=== PATIENT | male | born 1985 | race Caucasian/White ===

== ENCOUNTER 2024-12-29 10:09 | Inpatient (IN) | payer OTHER ==
[~2024-12-29] VITALS: Ht 182.9 cm; Wt 106.0 kg
--- NOTE | 2024-12-29 10:21 | ED.PDOC ---
GI ASSESSMENT HPI Comments 39-year-old male with PMHx Pancreatitis brought in by EMS presents with a chief complaint of abdominal pain x 2 days with associated nausea. Patient states that his pain is localized to his epigastric region, nonradiating, describes as sharp, and rates his pain 9/10. Patient mentions that the last time his pancreatitis flared up was August 2023. Patient denies any alcohol use recently. No other symptoms or modifying factors present at this time. Chief Complaint: Abdominal Pain Time Seen by MD: 10:05 Reviewed Notes: Medications, Allergies Allergies: Coded Allergies: NO KNOWN ALLERGIES (Unverified , 12/29/24) Information Source: Patient Timing: Days Duration: Since onset Prehospital treatment: None Quality: Sharp Vomitus: None Stool: Normal Severity: Moderate Recent: None Recent Hx of: None Pain Location: Epigastric Associated sign and symptoms: Nausea, Abdominal Pain Past Medical History PAST MEDICAL HISTORY: HTN Past Medical History (Other): Pancreatitis Surgical History: Denies all surgeries Family History Family History: Reviewed,noncontributory to illness Social History Smoker: Non-Smoker Alcohol: Denies ETOH Use Drugs: Denies Drug Use Lives In: Home Constitutional: denies: chills, diaphoresis, fatigue, fever, malaise, sweats, weakness, others EENTM: denies: blurred vision, double vision, ear bleeding, ear discharge, ear drainage, ear pain, ear ringing, eye pain, eye redness, hearing loss, mouth pain, mouth swelling, nasal discharge, nose bleeding, nose congestion, nose pain, photophobia, tearing, throat pain, throat swelling, voice changes, others Respiratory: denies: cough, hemoptysis, orthopnea, SOB at rest, shortness of breath, SOB with excertion, stridor, wheezing, others Cardiovascular: denies: chest pain, dizzy spells, diaphoresis, Dyspnea on exertion, edema, irregular heart beat, left arm pain, lightheadedness, palpitations, PND, syncope, others Gastrointestinal: reports: abdominal pain, nausea; denies: abdomen distended, blood streaked bowels, constipated, diarrhea, dysphagia, difficulty swallowing, hematemesis, melena, poor appetite, poor fluid intake, rectal bleeding, rectal pain, vomiting, others Genitourinary: denies: burning, dysuria, flank pain, frequency, hematuria, incontinence, penile discharge, penile sore, pain, testicle pain, testicle swelling, urgency, others Neurological: denies: dizziness, fainting, headache, left sided numbness, left sided weakness, numbness, paresthesia, pre-existing deficit, right sided numbness, right sided weakness, seizure, speech problems, tingling, tremors, weakness, others Musculoskeletal: denies: back pain, gout, joint pain, joint swelling, muscle pain, muscle stiffness, neck pain, others Integumetry: denies: bruises, change in color, change in hair/nails, dryness, laceration, lesions, lumps, rash, wounds, others Allergic/Immunocompromised: denies: Difficulty Healing, Frequent Infections, Hives, Itching, others Hematologic/Lymphatic: denies: anemia, blood clots, easy bleeding, easy bruising, swollen glands, others Endocrine: denies: excessive hunger, excessive sweating, excessive thirst, excessive urination, flushing, intolerance to cold, intolerance to heat, unexplained weight gain, unexplained weight loss, others Psychiatric: denies: anxiety, bipolar disorder, depression, hopeless, panic disorder, schizophrenia, sleepless, suicidal, others All Other Systems: Reviewed and Negative Physical Exam General Appearance: Moderate Distress, Normal HEENT: Normal ENT Inspection, Pharynx Normal, TMs Normal Neck: Full Range of Motion, Non-Tender, Normal, Normal Inspection Respiratory: Chest Non-Tender, Lungs Clear, No Accessory Muscle Use, No Respiratory Distress, Normal Breath Sounds Cardiovascular: No Edema, No JVD, No Murmur, No Gallop, Normal Peripheral Pulses, Regular Rate/Rhythm Breast Exam: Deferred Gastrointestinal: Distended, No Organomegaly, No Pulsatile Mass, Normal Bowel Sounds, Soft Genitalia: Deferred Pelvic: Deferred Rectal: Deferred Extremities: No calf tenderness, Normal capillary refill, Normal inspection, Normal range of motion, Non-tender, No pedal edema Musculoskeletal : Apperance: Normal Neurologic: Alert, 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 Was a procedure done?: No GI differential Dx Differential Diagnosis: Constipation, Diverticular disease, Esophagitis, Gastritis/PUD, Gastroenteritis X-Ray, Labs, Meds, VS Vital Signs Date Time Temp Pulse Resp B/P (MAP) Pulse Ox O2 Delivery O2 Flow Rate FiO2 12/29/24 11:17 80 18 130/70 12/29/24 10:56 79 18 128/81 12/29/24 10:50 97 18 97 Room Air* 0 21 12/29/24 10:47 97.9 92 16 128/81 (97) 100 97.9 12/29/24 10:47 92 16 100 Room Air 12/29/24 10:12 98.7 92 18 136/88 (104) 98 Lab Test 12/29/24 10:50 Range/Units White Blood Count 6.5 4.4-10.8 10^3/uL Red Blood Count 5.44 4.5-5.90 10^6/uL Hemoglobin 15.0 13.5-17.5 g/dL Hematocrit 44.7 41.0-53.0 % Mean Corpuscular Volume 82.2 80.0-100.0 fL Mean Corpuscular Hemoglobin 27.5 L 28.0-32.0 pg Mean Corpuscular Hemoglobin Concent 33.5 32.0-36.0 g/dL Red Cell Distribution Width 14.4 H 11.8-14.3 % Platelet Count 242 140-450 10^3/uL Mean Platelet Volume 8.1 6.9-10.8 fL Neutrophils (%) (Auto) 64.2 37.0-80.0 % Lymphocytes (%) (Auto) 25.9 10.0-50.0 % Monocytes (%) (Auto) 7.8 0.0-12.0 % Eosinophils (%) (Auto) 1.3 0.0-7.0 % Basophils (%) (Auto) 0.8 0.0-2.0 % Neutrophils # (Auto) 4.2 1.6-8.6 10 ^3/uL Lymphocytes # (Auto) 1.7 0.4-5.4 10 ^3/uL Monocytes # (Auto) 0.5 0-1.3 10 ^3/uL Eosinophils # (Auto) 0.1 0-0.8 10 ^3/uL Basophils # (Auto) 0.1 0-0.2 10 ^3/uL Nucleated Red Blood Cells 0.1 % Sodium Level 134 L 136-145 mmol/L Potassium Level 3.8 3.5-5.1 mmol/L Chloride Level 102 98-107 mmol/L Carbon Dioxide Level 24 20-31 mmol/L Anion Gap 8 5-15 Blood Urea Nitrogen 15 9-23 mg/dL Creatinine 0.92 0.700-1.30 mg/dL Glomerular Filtration Rate Calc 108 >90 mL/min BUN/Creatinine Ratio 16.3 10.0-20.0 Serum Glucose 129 H 74-106 mg/dL Calcium Level 9.3 8.7-10.4 mg/dL Total Bilirubin 0.6 0.2-1.0 mg/dL Lipase 23 12-53 U/L Current Medications Medications (Trade) Dose Ordered Sig/Coreen Route Start Time Stop Time Status Last Admin Ondansetron HCl (Zofran) 4 mg ONCE ONCE IV 12/29/24 10:15 12/29/24 10:40 DC 12/29/24 10:57 Sodium Chloride 1,000 ml @ 1,000 mls/hr Q1H ONCE IVB 12/29/24 10:15 12/29/24 11:14 DC 12/29/24 10:55 Morphine Sulfate 4 mg ONCE ONCE IV 12/29/24 10:15 12/29/24 10:40 DC 12/29/24 10:56 Patient alert. Complaining of abdominal pain. Vitals stable. Answering questions. Abdomen is distended. History of pancreatitis. Establish intravenous access. Was given fluids. Was given morphine. Was given Zofran. Last time he had pancreatitis was last year. Lipase within normal limits pain Continues to have abdominal pain. Was given Dilaudid. Explained to the patient. Continue monitoring. Time of 1ST Reevaluation: 10:35 Reevaluation 1ST: Unchanged Patient Education/Counseling: Diagnosis, Treatment, Prognosis Family Education/Counseling: Diagnosis, Treatment, Prognosis Departure 1 Departure Time of Disposition: 10:51 Impression: Primary Impression: Acute abdominal pain Disposition: ADMITTED INPATIENT Admit to: Med Surg Condition: Guarded Critical Care Note Critical Care Time?: No Stability Stability form required: No Heart Score Heart Score: Heart Score Response (Comments) Value History N/A 0 EKG N/A 0 Age N/A 0 Risk Factors N/A 0 Troponin N/A 0 Total 0 I personally scribed for THEODORE PIKE MD ([email or web address]) on 12/29/24 at 10:21. Electronically submitted by Eliud Hood ([email or web address]). THEODORE PIKE MD Dec 29, 2024 10:21
[2024-12-29 10:50] VITALS: PULSE 97; RESP 18; O2SAT 97
[2024-12-29] MEDS: SODIUM CHLORIDE 0.9% 1,000 ML IVB ONE (10:55)
[2024-12-29] MEDS: MORPHINE SULFATE 4 MG/ML SYR/VIAL IV ONE (10:56)
[2024-12-29] MEDS: ONDANSETRON HCL 4 MG/2 ML VIAL IV ONE (10:57)
[2024-12-29 11:17] LABS: Basophils # (auto) 0.1 10 ^3/uL (0-0.2); Basophils % (auto) 0.8 % (0.0-2.0); Eosinophils # (auto) 0.1 10 ^3/uL (0-0.8); Eosinophils % (auto) 1.3 % (0.0-7.0); Hematocrit 44.7 % (41.0-53.0); Lymphocytes # (auto) 1.7 10 ^3/uL (0.4-5.4); Lymphocytes % (auto) 25.9 % (10.0-50.0); Mean Corpuscular Hemoglobin 27.5 pg (28.0-32.0); Mean Corpuscular Hgb Conc. 33.5 g/dL (32.0-36.0); Mean Corpuscular Volume 82.2 fL (80.0-100.0); Monocytes # (auto) 0.5 10 ^3/uL (0-1.3); Monocytes % (auto) 7.8 % (0.0-12.0); Neutrophils # (auto) 4.2 10 ^3/uL (1.6-8.6); Neutrophils % (auto) 64.2 % (37.0-80.0); Nucleated Red Blood Cells % 0.1 %; Platelet Count (auto) 242 10^3/uL (140-450); Red Blood Cells 5.44 10^6/uL (4.5-5.90); Red Cell Distribution Width 14.4 % (11.8-14.3); White Blood Cell 6.5 10^3/uL (4.4-10.8)
[2024-12-29 11:23] LABS: Anion Gap 8 (5-15); Calcium 9.3 mg/dL (8.7-10.4); Carbon Dioxide 24 mmol/L (20-31); Chloride 102 mmol/L (98-107); Potassium 3.8 mmol/L (3.5-5.1)
[2024-12-29 11:29] LABS: BUN/Creatinine Ratio 16.3 (10.0-20.0); Blood Urea Nitrogen 15 mg/dL (9-23)
[2024-12-29 11:31] LABS: Bilirubin, Total 0.6 mg/dL (0.2-1.0)
[2024-12-29 11:33] LABS: Glucose 129 mg/dL (74-106); Sodium 134 mmol/L (136-145)
[2024-12-29 12:11] LABS: Lipase 23 U/L (12-53)
[2024-12-29] MEDS: HYDROmorphone HCL 2 MG/ML VL/or syr IV ONE (13:08)
[2024-12-29] MEDS ORDERED: HYDROcodone-ACET 5/325MG TAB PO PRN (15:30)
[2024-12-29] MEDS ORDERED: ACETAMINOPHEN 325 MG TAB PO PRN (15:45)
[2024-12-29] MEDS ORDERED: DEXTROSE (50%) 50ML SYRG IV PRN (15:45)
[2024-12-29] MEDS ORDERED: ONDANSETRON HCL 4 MG/2 ML VIAL IV PRN (15:45)
[2024-12-29] MEDS ORDERED: hydrALAZINE HCL 20 MG/ML VL IV PRN (15:45)
--- NOTE | 2024-12-29 16:19 | DVHHP2 ---
History of Present Illness Reason for Visit: ABD pain intractable History of Present Illness 39-year-old male with PMHx Pancreatitis brought in by EMS presents with a chief complaint of abdominal pain x 2 days with associated nausea. Patient states that his pain is localized to his epigastric region, nonradiating, describes as sharp, and rates his pain 9/10. Patient mentions that the last time his pancreatitis flared up was August 2023, and it felt the same way. Patient denies any alcohol use recently. No other symptoms or modifying factors present at this time. Abdominal distention noted. Lipase is within normal limits. Pancreas ultrasound pending Past Medical History Hypertension and anxiety, insomnia Past Surgical History Denies Family History Denies Smoke: No ALCOHOL: none Drugs: None Lives: Alone Review of Systems Constitutional: No: Fever, Chills, Sweats, Weakness, Malaise, Other Eyes: No: Pain, Vision change, Conjunctivae inflammation, Eyelid inflammation, Other, Redness ENT: No: Ear pain, Ear discharge, Nose pain, Nose discharge, Nose congestion, Mouth pain, Mouth swelling, Throat pain, Throat swelling, Other Respiratory: No: Cough, Dry, Shortness of breath, SOB with excertion, Wheezing, Hemoptysis, Pleuritic Pain, Sputum, Wheezing, Other Cardiovascular: No: Chest Pain, Palpitations, Orthopnea, Paroxysmal Noc. Dyspnea, Edema, Lt Headedness, Other Gastrointestinal: Nausea, Abdominal Pain; No: Vomiting, Diarrhea, Constipation, Melena, Hematochezia, Other Genitourinary: No Dysuria, No Frequency, No Incontinence, No Hematuria, No Retention, No Other Musculoskeletal: No: other, neck pain, shoulder pain, arm pain, back pain, hand pain, leg pain, foot pain Skin: No: Rash, Lesions, Jaundice, Bruising, Other Neurological: No: Weakness, Numbness, Incoordination, Change in speech, Confusion, Seizures, Other Allergies: Coded Allergies: NO KNOWN ALLERGIES (Unverified , 12/29/24) Medications Current Medications Medications Dose Ordered Sig/Coreen Route Start Time Stop Time Status Last Admin Dose Admin Bupropion HCl 150 mg BID@07,19 PO 12/29/24 15:30 UNV Atorvastatin Calcium 20 mg HS PO 12/29/24 22:00 UNV Quetiapine Fumarate 300 mg HS PO 12/29/24 22:00 UNV Propranolol HCl 10 mg BID PO 12/29/24 15:30 UNV Hydromorphone HCl 0.25 mg Q4HPRN PRN IV 12/29/24 15:30 UNV Acetaminophen/ Hydrocodone Bitart 1 tab Q4HPRN PRN PO 12/29/24 15:30 UNV Ondansetron HCl 4 mg Q4HPRN PRN IV 12/29/24 15:45 UNV Acetaminophen 325 mg Q6HP PRN PO 12/29/24 15:45 UNV Hydralazine HCl 10 mg Q6HP PRN IV 12/29/24 15:45 UNV Diagnostic Test (Pha) 1 strip ACHS 12/29/24 17:00 UNV Insulin Human Regular HS SC 12/29/24 22:00 UNV Insulin Human Regular AC SC 12/29/24 17:00 UNV Dextrose 50 ml UD PRN IV 12/29/24 15:45 UNV Exam Vital Signs Vital Signs Date Time Temp Pulse Resp B/P (MAP) Pulse Ox O2 Delivery O2 Flow Rate FiO2 12/29/24 13:37 80 18 145/90 12/29/24 10:50 97 Room Air* 0 21 12/29/24 10:47 97.9 97.9 General Appearance: Alert, Oriented X3, Cooperative, No acute distress HEENT: Atraumatic, PERRLA, EOMI, Mucous membr. moist/pink Respiratory: Clear to auscultation, Normal air movement Cardiovascular: Regular rate, Normal S1, Normal S2, No murmurs Abdominal: Normal bowel sounds, No tenderness, No hepatospenomegaly, No masses Extremities: No clubbing, No cyanosis, No edema, Normal pulses, No tenderness/swelling Skin: No rashes, No breakdown, No significant lesion Neuro: Normal gait, Normal speech, Strength at 5/5 X4 ext, Normal tone, Sensation intact, Cranial nerves 3-12 NL Psych/Mental Status: Mental status NL, Mood NL Labs/Xrays Imaging and lab work reviewed Labs Test 12/29/24 10:50 Range/Units White Blood Count 6.5 4.4-10.8 10^3/uL Red Blood Count 5.44 4.5-5.90 10^6/uL Hemoglobin 15.0 13.5-17.5 g/dL Hematocrit 44.7 41.0-53.0 % Mean Corpuscular Volume 82.2 80.0-100.0 fL Mean Corpuscular Hemoglobin 27.5 L 28.0-32.0 pg Mean Corpuscular Hemoglobin Concent 33.5 32.0-36.0 g/dL Red Cell Distribution Width 14.4 H 11.8-14.3 % Platelet Count 242 140-450 10^3/uL Mean Platelet Volume 8.1 6.9-10.8 fL Neutrophils (%) (Auto) 64.2 37.0-80.0 % Lymphocytes (%) (Auto) 25.9 10.0-50.0 % Monocytes (%) (Auto) 7.8 0.0-12.0 % Eosinophils (%) (Auto) 1.3 0.0-7.0 % Basophils (%) (Auto) 0.8 0.0-2.0 % Neutrophils # (Auto) 4.2 1.6-8.6 10 ^3/uL Lymphocytes # (Auto) 1.7 0.4-5.4 10 ^3/uL Monocytes # (Auto) 0.5 0-1.3 10 ^3/uL Eosinophils # (Auto) 0.1 0-0.8 10 ^3/uL Basophils # (Auto) 0.1 0-0.2 10 ^3/uL Nucleated Red Blood Cells 0.1 % Sodium Level 134 L 136-145 mmol/L Potassium Level 3.8 3.5-5.1 mmol/L Chloride Level 102 98-107 mmol/L Carbon Dioxide Level 24 20-31 mmol/L Anion Gap 8 5-15 Blood Urea Nitrogen 15 9-23 mg/dL Creatinine 0.92 0.700-1.30 mg/dL Glomerular Filtration Rate Calc 108 >90 mL/min BUN/Creatinine Ratio 16.3 10.0-20.0 Serum Glucose 129 H 74-106 mg/dL Calcium Level 9.3 8.7-10.4 mg/dL Total Bilirubin 0.6 0.2-1.0 mg/dL Lipase 23 12-53 U/L Assessment/Plan Assessment/Plan Assessment/Plan: Intractable abdominal pain possibly pancreatitis flare-up Ultrasound pending Lipase normal pain management antiemetics ua pending am labs Diabetes mellitus Patient has a insulin pump and CGM Nurse to document CGM results and amount of insulin given at Accu-Chek times Patient reports blood sugars well controlled an average of 125 Depression history Patient usually takes bupropion 300 mg extended release once a day That formulary is unavailable. Replaced with 150 mg twice a day Chronic benign essential hypertension Per patient he takes propranolol daily Insomnia Seroquel at p.m. FEN/PPX Diet NS DVT prophylaxis not indicated patient ambulating PUD prophylaxis - Protonix Admit to med surg Discussed plan of care with patient and nurse Plan discussed with: Patient My Orders Orders - SOREN GAN Procedure Category Date Status Time Admit ADMIT 12/29/24 Transmitted 15:28 Code Status CODE 12/29/24 Transmitted 15:28 Vital Signs KAMILAH 12/29/24 In Process 15:28 Review Orders With KAMILAH 12/29/24 In Process Adm. 15:28 Notify Of Changes KAMILAH 12/29/24 In Process From Base 15:28 Advance Directive KAMILAH 12/29/24 In Process 15:28 Patient Condition ORDERS 12/29/24 Transmitted 15:28 Allergies KAMILAH 12/29/24 In Process 15:28 Bupropion Tablet PHA 12/29/24 Logged (Wellbutrin Tablet) 15:30 Atorvastatin (Lipitor) PHA 12/29/24 Logged 22:00 Quetiapine Fumarate PHA 12/29/24 Logged Tablet (Seroquel Tab 22:00 Propranolol Hcl PHA 12/29/24 Logged Tablet (Inderal 15:30 Hydromorphone PHA 12/29/24 Logged Injection (Dilaudid 15:30 Hydrocodone-Acet PHA 12/29/24 Logged 5/325mg Tab ([place] 15:30 Consistent DIET 12/29/24 Transmitted Carb(Ccho)Diabetes Dinner Ondansetron Hcl PHA 12/29/24 Logged (Zofran) 15:45 Acetaminophen Tablet PHA 12/29/24 Logged (Tylenol Tablet) 15:45 Hydralazine Injection PHA 12/29/24 Logged (Apresoline Inject 15:45 Glucose Blood PHA 12/29/24 Logged (Accu-Chek Comfort 17:00 Insulin R (Human) PHA 12/29/24 Logged (Insulin R) 22:00 Insulin R (Human) PHA 12/29/24 Logged (Insulin R) 17:00 Dextrose 50% Syringe PHA 12/29/24 Logged 15:45 Communication Order ORDERS 12/29/24 Transmitted 15:45 Pancreas 12/29/24 Logged 15:49 Date of Service: Dec 29, 2024 Billing Provider: SOREN GAN Common Visit Codes: [id number] INP/OBS CARE(HIGH) SOREN GAN Dec 29, 2024 16:19
[2024-12-29] MEDS: ACCU-CHEK COMFORT CURVE STRIP VI SCH (16:56)
[2024-12-29] MEDS: InsuLIN REG 1unit/0.01ml Soln (100units/ml) SC SCH ×2 (17:00→22:59)
[2024-12-29] MEDS: PROPRANOLOL HCL 20 MG TAB PO SCH (17:06)
[2024-12-29] MEDS: buPROPion HCL 75 MG TAB PO SCH (17:07)
[2024-12-29] MEDS: HYDROmorphone HCL 2 MG/ML VL/or syr IV PRN (17:12)
--- NOTE | 2024-12-29 17:45 | DVH ---
INDICATION: Suspected reoccurring pancreatitis TECHNIQUE: Multiple real-time sonographic images were obtained of the right upper quadrant. COMPARISON: None FINDINGS: The liver demonstrates increased echotexture without focal mass lesions. The liver measure s 18.6 cm. There is no intrahepatic or extrahepatic ductal dilatation. The common duct measures 0.4 cm. The gallbladder is without evidence of stone or sludge. The gallbladder wall measures 0.3 cm and is within normal limits. The right kidney measures 10.1 cm. The right kidney is normal in contour, size, and shape. The echo genicity is normal. There is no hydronephrosis. The pancreas is not well visualized due to overlying bowel gas. IMPRESSION: Hepatic steatosis and hepatomegaly.
[2024-12-29] MEDS: QUEtiapine FUMARATE 100 MG TAB PO SCH (22:51)
[2024-12-29 22:53] VITALS: TEMP 98.3; O2SAT 98
[2024-12-29] MEDS: ATORVASTATIN 20 MG TAB PO SCH (22:53)
[2024-12-29 23:49] VITALS: BP 138/92; PULSE 89; RESP 22
== END 2024-12-30 00:06 | disposition left against medical advice (07) | DRG 282 ==
LOC: ER 10:09 → EDBD 10:09 → OVERFLOW 15:28
PROVIDERS: ADMIT Registered Nurse General Practice; ATTEND Registered Nurse General Practice
DX: K85.90 Acute pancreatitis without necrosis or infection, unspecified (principal); E11.9 Type 2 diabetes mellitus without complications; I10 Essential (primary) hypertension; Z53.29 Procedure and treatment not carried out because of patient's decision for other reasons; G47.00 Insomnia, unspecified; Z79.899 Other long term (current) drug therapy; Z79.4 Long term (current) use of insulin
CPT/HCPCS: 36415; 76705; 80048; 82247; 82962; 83690; 85025; 96361; 96374; 96375; G0378; J2405